=== PATIENT | male | born 1970 | race Caucasian/White ===

== ENCOUNTER → 2023-10-13 06:29 | Day surgery (SDC) | payer OTHER, SELFPAY | LOC: GI 06:29 | PROVIDERS: ATTENDING PHYSICIAN Internal Medicine Gastroenterology; FAMILY PHYSICIAN Family Medicine | DX: Z12.11 Encounter for screening for malignant neoplasm of colon (principal); R19.5 Other fecal abnormalities; K64.8 Other hemorrhoids; D12.4 Benign neoplasm of descending colon; R13.10 Dysphagia, unspecified; K31.7 Polyp of stomach and duodenum; K29.50 Unspecified chronic gastritis without bleeding | CPT/HCPCS: 45385; 43239; 88305; 88342 ==

== ENCOUNTER 2024-01-28 06:12 | Inpatient (IN) | payer OTHER, SELFPAY ==
[2024-01-28] VITALS (22 sets, daily range): BP systolic 106–153; BP diastolic 71–102; BMI 38.8
[2024-01-28] MEDS: LOW STRENGTH ASPIRIN 324 MG PO (04:54)
[2024-01-28] MEDS: BRILINTA 180 MG PO (04:54)
[2024-01-28] MEDS: NITROSTAT (SUBLINGUAL) 0.400000000000000022 MG SL ×3 (04:56→05:09)
[2024-01-28] MEDS: HEPARIN 5000 UNITS SC ×3 (04:57→16:06)
[2024-01-28 05:00] LABS: Glucose - Point of Care 130 mg/dl (70-99)
[2024-01-28 05:09] LABS: % Basophils 0.7 % (0-2); % Eosinophils 2.5 % (0-6); % Immature Granulocytes 0.6 % (0-0.5); % Lymphocytes 34.1 % (20.5-51.1); % Monocytes 10.8 % (1.7-9.3); % Neutrophils 51.3 % (42.2-75.2); Absolute Basophils 0.1 10^3/uL (0-0.2); Absolute Eosinophils 0.2 10^3/uL (0-0.7); Absolute Lymphocytes 2.5 10^3/uL (1.2-3.4); Absolute Monocytes 0.8 10^3/uL (0.1-0.6); Absolute Neutrophils 3.7 10^3/uL (1.4-6.5); Hematocrit 42.1 % (39.0-52.0); Hemoglobin 14.6 g/dL (13.0-18.0); Mean Corp Hgb Conc. 34.7 g/dL (33.0-37.0); Mean Corpuscular Hgb 28.9 pg (27.0-31.0); Mean Corpuscular Volume 83.2 fL (80.0-94.0); Mean Platelet Volume 8.9 fL (7.4-10.4); Nucleated Red Blood Cells % 0 % (-); Platelet Count 245 10^3/uL (130-400); Red Blood Cell Count 5.06 10^6/uL (4.70-6.10); Red Cell Dist. Width 13.3 % (11.5-14.5); White Blood Cell Count 7.2 10^3/uL (4.8-10.8)
[2024-01-28 05:19] LABS: APTT 24.5 Sec (23.4-35.0)
--- NOTE | 2024-01-28 05:19 | ED.GENMED ---
History of Present Illness
General
Chief Complaint: Chest Pain
Source: patient
Exam Limitations: clinical condition
Nursing documentation reviewed up to this point in time: agreed with
Travel History
Have you had any contact with someone who has COVID-19?: No
Do you have any symptoms of coronavirus? Fever > 100 degrees, chills, cough, shortness of breath, sore throat, loss of taste or smell, muscle aches, or headache?: No
History of Present Illness
History of Present Illness:
53-year-old male presents with substernal nonradiating chest pain that began around 4 AM and awakened him from sleep. States that he has not been feeling well for the last few days. Does have a history of myopericarditis that he had over 20 years
ago. Does have an extensive family history of cardiac disease. He has had a clean catheterization in his past. He is an occasional drinker and a very occasional cigar smoker. Does have high blood pressure and high cholesterol. He states that he
is a prediabetic. He reports not getting enough exercise as he would like.
Past History
Past History
ED Past Medical History: GERD, Hypercholesterolemia and Other (Viral pericarditis)
ED Past Surgical History: Orthopedic
Social History
Tobacco: Non-smoker
Alcohol: Occasional
Drug: None
Personal:
Living: with family
Review of Systems
Review of Systems
Allergies reviewed?: Yes
All Other Systems: ROS reviewed and negative except as documented in HPI and ROS
Constitutional: Reports no symptoms
EENT: Reports no symptoms
Respiratory: Reports no symptoms
Cardiac: Reports chest pain and diaphoresis
ABD/GI: Reports no symptoms
: Reports no symptoms
Musculoskeletal: Reports no symptoms
Skin: Reports no symptoms
Neurological: Reports no symptoms
Endocrine: Reports no symptoms
Hematologic/Lymphatic: Reports no symptoms
Psychiatric: Reports no symptoms
Phy Exam
General Physical Exam
General Presentation: moderate distress
General Skin: warm and diaphoretic
General Habitus: normal
General Mental: alert
General Hydration: appears well hydrated
ENT Exam
ENT Exam: EOMI, pharynx normal, neck supple and normocephalic
Eye Exam
Eye Exam: PERRL, cornea clear and conjunctiva normal
Cardiovascular Exam
Cardiovascular Exam: regular rate/rhythm, no edema, no murmur and normal peripheral pulses
Pulmonary Exam
Pulmonary Exam: lungs clear, no respiratory distress, no rales, no crackles, no rhonchi, no stridor, no wheezing and no cough
Gastrointestinal Exam
Gastrointestinal Exam: normal bowel sounds, non tender, soft, no organomegaly, no pulsatile mass and non distended
Neurological Exam
Neurological Exam: alert, oriented x3, no motor deficits and speech normal
Musculoskeletal Exam
Musculoskeletal Exam: full ROM and no edema
Skin Exam
Skin Exam: normal color, warm/dry, no rash and no petechia
Psychiatric Exam
Psychiatric Exam: normal mood/affect
Scores
Heart Score for Chest Pain Patients
STEMI patient?: Yes
Course
Orders/Labs/Results
Orders:
Orders
01/28/24 04:40
EKG [Electrocardiogram (*1)] Urgent
Reason for Study: Chest Pain
EKG- Treatment ONCE
01/28/24 04:52
Electrocardiogram (*1) Urgent
Reason for Study: Chest Pain
Cardiac Monitoring- Treatment ONCE
EKG- Treatment ONCE
IV Insert/Care/Rem.- Treatment PRN
Aspirin Chewable [Low Strength Aspirin] 324 mg PO NOW STA
O2 Therapy [RESP] Urgent
Titrate/Wean O2 to maintain O2 sat greater than (%): 90
Special Instructions: Maintain sats >/=90%
Pulse Ox/spot Check [RESP] Urgent
Quantity: 1
Special Instructions: ON ROOM AIR
01/28/24 04:53
Ticagrelor [Brilinta] 180 mg PO ONCE ONE
01/28/24 04:55
Nitroglycerin Sublingual [Nitrostat (Sublingual)] 0.4 mg SL NOW STA
01/28/24 04:57
Heparin 5,000 units SC NOW STA
01/28/24 04:58
Bedside Glucose- Treatment ONCE
01/28/24 04:59
C-Reactive Protein Urgent
Comment: ADD ON
Complete Blood Count/With Diff Urgent
Comprehensive Metabolic Panel Urgent
Erythrocyte Sed Rate Urgent
Comment: ADD ON
Troponin I Urgent
01/28/24 05:02
PTT Urgent
01/28/24 05:03
Nitroglycerin Sublingual [Nitrostat (Sublingual)] 0.4 mg SL NOW STA
01/28/24 05:08
Nitroglycerin Sublingual [Nitrostat (Sublingual)] 0.4 mg SL NOW STA
01/28/24 05:14
Fentanyl Citrate/Pf [Sublimaze] 100 mcg .ROUTE .STK-MED ONE
Heparin 10,000 units .ROUTE .STK-MED ONE
Midazolam HCl [Versed] 2 mg .ROUTE .STK-MED ONE
01/28/24 05:16
Heparin 1000 Units/500 ml [Heparin] 1,000 units in 500 ml .ROUTE .STK-MED
Verapamil Injectable [Isoptin/Verapamil Injection] 5 mg .ROUTE .STK-MED ONE
01/28/24 05:17
Lidocaine HCl/Pf [Xylocaine-Mpf 1% Vial] 50 mg .ROUTE .STK-MED ONE
Nitroglycerin [Tridil] 1,500 mcg .ROUTE .STK-MED ONE
01/28/24 05:36
Aspirin Chewable [Low Strength Aspirin] 324 mg .ROUTE .STK-MED ONE
Heparin 5,000 units .ROUTE .STK-MED ONE
Ticagrelor [Brilinta] 180 mg .ROUTE .STK-MED ONE
01/28/24 Breakfast
Cholesterol Lowering
Cholesterol Lowering: Sodium, 2 Gram
01/28/24 06:04
Code Status As Directed
Resuscitation Status: Full Code
Acetaminophen [Tylenol] 650 mg PO Q4HPRN PRN
01/28/24 06:05
Admit Patient As Directed
Co-Sign Provider:
Level of Care: Inpatient admission
Assign to:: IVU
Physician / Group: Lazara Kaur
Diagnosis: NSTEMI
Reason for Hospitalization: NSTEMI
Expected length of stay greater than two midnights?: Yes
ELOS- Estimated Length of Stay in days: 2
I certify the patient meets the requirements for IP care: Yes
Electrocardiogram (*1) Urgent
Reason for Study: Other
Other Reason for Exam: s/p intervention
CARDIAC REHAB CONSULT Routine
Co-Sign Provider:
Type of Cardiac Rehab Referral: Outpatient
Diagnosis: NSTEMI
Date of Diagnosis/Surgery: 01/28/24
Referring Provider: Noemi Monzon
Activity As Directed
Activity Level: Out of Bed- Ad Sravanthi
Activity Frequency: Ad Sravanthi
Activity As Directed
Activity Level: Out of Bed- Chair
Comment: bed/chair rest for 2 hours then out of bed ad sravanthi
Tourist Information Assistant Procedure As Directed
Cardiac Cath Procedure: cardiac catheterization
Tourist Information Assistant Procedure As Directed
Cardiac Cath Procedure: percutaneous coronary intervention
Intake/ Output As Directed
Frequency: Per unit guidelines
Notify MD As Directed
Notify physician if: immediately for chest pain or bleeding from access site(s)
Notify MD As Directed
Notify physician if: immediately for chest pain or bleeding from access site(s)
Radial Artery Hemostasis Method As Directed
Instructions:: 3 mL out at 1 hour post placement of band
3 mL out at 1 1/2 hours post placement of band
3 mL out at 2 hours post placement of band
Off at 2 1/2 hours post placement of band
If any oozing or hemotoma occurs:: re-inflate band and call provider
Radial Artery Hemostasis Method As Directed
Instructions:: 3 mL out at 2 hour posts placement of band
3 mL out at 2 1/2 hours post placement of band
3 mL out at 3 hours post placement of band
Off at 3 1/2 hours post placement of band
If any oozing or hemotoma occurs:: re-inflate band and call provider
Site Checks As Directed
Check access site for bleeding/hematoma: Yes
Comment: on arrival, Q15min x4, Q30min x2, Q1 hr x2, Q2 hr x2, Q4 hr or per
protocol
Site Checks As Directed
Check access site for bleeding/hematoma: Yes
Comment: on arrival, Q15min x4, Q30min x2, Q1 hr x2, Q2 hr x2, Q4 hr or per
protocol
Vascular Checks As Directed
Location: distal to access site - pulse check
Frequency: Other
Comment: on arrival, Q15min x4, Q30min x2, Q1 hr x2, Q2 hr x2, Q4 hr or per protocol
Vascular Checks As Directed
Location: distal to access site - pulse check
Frequency: Other
Comment: on arrival, Q15min x4, Q30min x2, Q1 hr x2, Q2 hr x2, Q4 hr or per protocol
Vital Signs As Directed
Frequency: Other
Additional Instructions:: on arrival, Q15min x4, Q30min x2, Q1 hr x2, Q2 hr x2, then Q4 hr or per unit
protocol
Vital Signs As Directed
Frequency: Other
Additional Instructions:: on arrival, Q15min x4, Q30min x2, Q1 hr x2, Q2 hr x2, then Q4 hr or per unit
protocol
01/28/24 06:08
DX Deep Vein Thrombosis Video Routine
01/28/24 06:11
Add On- LAB Routine
Tests Added?: ESR, CRP
01/28/24 08:00
Heparin 5,000 units SC Q8
01/28/24 12:35
Coxsackie A9 [S] Routine
01/28/24 17:43
Troponin I Q8H
Abnormal Lab Results
01/28/24 01/28/24
04:58 04:59
Absolute Monos (auto) 0.8 H 10^3/uL
(0.1-0.6)
Immature Gran % 0.6 H %
(0-0.5)
Monocytes % 10.8 H %
(1.7-9.3)
Glucose 130 H mg/dl
(70-99)
ALT 59 H U/L
(0-50)
Troponin I 0.616 H* ng/ml
C-Reactive Protein 18.50 H mg/L
(0.0-10.00)
POC Glucose 130 H mg/dl
(70-99)
01/28/24 04:59
01/28/24 04:59
Vital Signs
Initial and Last Documented VS:
Initial Vital Signs
BP
153/102
01/28/24 04:49
Last Documented Vital Signs
Temp Pulse Resp BP Pulse Ox
98.0 F 85 16 113/87 95
01/28/24 19:06 01/28/24 19:06 01/28/24 19:06 01/28/24 18:34 01/28/24 19:06
*Critical Care Note
Total Time (30-74mins, 75-104mins- exclusive of procedures): 35
comment:
Critical care statement: A total of 35 minutes of critical care time was provided for this patient. This time is separate from time utilized to perform the aforementioned documented procedures. Aggregate critical care time includes only time
during which I was engaged in work directly related to the patient's care, as described above, whether at the bedside or elsewhere in the Emergency Department.
ED Attending Note
-
Portions of this chart may have been created with voice recognition software.� Occasional wrong word or��sound alike� substitutions may have occurred due to the inherent limitations of voice recognition software.
Discharge Plan
Departure
Patient Disposition: [employer]
Date of Disposition: 01/28/24
Time of Disposition: :
Admit to: [facility]
Presentation/result/management discussed w/ accepting MD/DO: Dr. Monzon
Discharge Problem:
ST elevation (STEMI) myocardial infarction
Interventions
Interventions:
*Risk Screen - Suicide Last Done: 01/28/24 04:50
*General Assessment Last Done: 01/28/24 04:50
*Neglect/Abuse Screening Last Done: 01/28/24 04:50
ED- Fall Risk Assessment Last Done: 01/28/24 04:50
*ED COVID-19 Vaccine History Last Done: 01/28/24 04:50
*Nursing Disposition Last Done: 01/28/24 05:34
ED- Cardiac Assessment Last Done: 01/28/24 05:32
Discharge Date and Time
Discharge Date/Time: 01/28/24 05:35
[2024-01-28 05:22] LABS: ALT (SGPT) 59 U/L (0-50); AST (SGOT) 41 U/L (17-59); Albumin 4.4 g/dl (3.5-5.0); Alkaline Phosphatase 83 U/L (38-126); Blood Urea Nitrogen 16 mg/dl (9-20); Carbon Dioxide 27 mmol/L (22-30); Chloride 102 mmol/L (98-107); Estimated Creatinine Clearance > 125 ml/min; Glucose 130 mg/dl (70-99); Potassium 4.6 mmol/L (3.5-5.1); Sodium 140 mmol/L (135-145); Total Bilirubin 0.4 mg/dl (0.2-1.3); Total Protein 7.1 g/dl (6.3-8.2); eGFR > 60.00
[2024-01-28 06:00] LABS: Troponin I 0.616 ng/ml
--- NOTE | 2024-01-28 06:08 | HPS.HSE ---
Family Physician
-
Family Physician: Wilfredo Larson
Chief Complaint
-
CP
History of Present Illness
HPI: 53-year-old male PMH GERD, HTN, HLD, prediabetes, h/o myopericarditis; p/w substernal chest pain, generalized weakness and low grade fever that started on Friday. He was awoken by chest pain at 4 am on DOA.
He denies to other symptoms.
In the ED, his EKG noted diffuse ST elevation and STEMI alert was called. Pt was rushed to the laborer r[facility], but no significant coronary artery disease was noted.
Medical History
Past Medical History
Past Medical History: Reports Other
Additional Past Medical History:
GERD
HTN
HLD
prediabetes
h/o myopericarditis
In the ED, his EKG noted diffuse ST elevation and STEMI alert was called. Pt was rushed to the laborer rags, but no significant coronary artery disease was noted.
Past Surgical History: Reports Other
Additional Past Surgical History:
R wrist surgery
Social History
Tobacco: Other (cigar)
Alcohol: Occasional
Personal:
Living: With Family
Family History
Family History: Not pertinent
Allergies / Home Medications
Allergies reflects when Allergies were last updated in [facility].
Home Medications with original date entered in [facility]
Allergy/Medication List:
Allergies
Allergy/AdvReac Type Severity Reaction Status Date / Time
No Known Allergies Allergy Verified 01/28/24 04:49
Home Medications
omeprazole 40 mg capsule,delayed release 40 mg PO DAILY 01/28/24
pravastatin 10 mg tablet 10 mg PO HS 01/28/24
trazodone 50 mg tablet 50 mg PO HS PRN . 01/28/24
Review of Systems
-
Cardiac: Reports See HPI and Chest Pain
Physical Exam
Vital Signs
Vital Signs
Temp Pulse Resp BP Pulse Ox
36.7 C 93 21 145/89 99
01/28/24 04:50 01/28/24 05:00 01/28/24 05:00 01/28/24 05:00 01/28/24 05:00
Physical Exam
General: Well Developed, Well Nourished, No Apparent Distress, Comfortable and Conversant
HEENT: NormoCephalic, Moist mucous membranes and Atraumatic
Respiratory: Clear and Non Labored Respirations; No Accessory Resp Muscle Use
Cardiac: S1/S2 and Regular Rhythm; No Murmur or Rub
GI: Soft, Non Tender, Non Distended and Normal Bowel Sounds; No Organomegaly
Rectal: Deferred by Provider
Musculoskeletal: No Clubbing, No Cyanosis and No Edema
Skin: No Rash
Neuro: Awake and Nonfocal/grossly intact
Psych: Calm and Intact Judgment/Insight
Laboratory Results
-
01/28/24 04:59
01/28/24 04:59
Laboratory Results
APTT 24.5 Sec (23.4-35.0) 01/28/24 05:02
Total Bilirubin 0.4 mg/dl (0.2-1.3) 01/28/24 04:59
AST 41 U/L (17-59) 01/28/24 04:59
ALT 59 U/L (0-50) H 01/28/24 04:59
Alkaline Phosphatase 83 U/L (38-126) 01/28/24 04:59
Troponin I 0.616 ng/ml H* 01/28/24 04:59
Data Reviewed
-
Lab Data: Labs Reviewed by me
Impression/Plan
-
HPI: 53-year-old male PMH GERD, HTN, HLD, prediabetes, h/o myopericarditis; p/w substernal chest pain, generalized weakness and low grade fever that started on Friday. He was awoken by chest pain at 4 am on DOA.
He denies to other symptoms.
In the ED, his EKG noted diffuse ST elevation and STEMI alert was called. Pt was rushed to the laborer rags, but no significant coronary artery disease was noted.
A/P:
# CP with ST elevation due to pericarditis
ACS was ruled out from cardiac cath
check echo
trend trop until peak
Check ESR/CRP, coxsackie virus
Card CS
# GERD
# HTN
# HLD
# prediabetes
# Obersity
DVT ppx: Lovenox SQ
FC
--- NOTE | 2024-01-28 06:12 | ITS.CL.CATH ---
Dining Room Host/Hostess - Catheterization
Cardiac Catheterization
Procedure Report:
LEFT HEART CATHETERIZATION
Date of Procedure: January 28, 2024
Referring: [facility] emergency department
PROCEDURES:
1. Left heart catheterization, coronary angiogram.
2. Ultrasound-guided access
INDICATION: Patient is a 53-year-old morbidly obese gentleman with past medical history of prediabetes, hypertension, hyperlipidemia, prior episode of myopericarditis in his 20s or 30s for which he underwent a prior heart catheterization at [facility] who now presents with substernal chest pressure starting around 4 AM prior to presentation to the emergency department. He stated that since Friday he has been feeling unwell generally with chills and fevers without other specific
symptoms. He is pretty active at work and denies any recent exertional chest discomfort or shortness of breath. Chest discomfort radiating to right shoulder. ECG with subtle ST elevations diffusely, more prominent in 1 and aVL. Given ongoing
chest discomfort at 4 out of 10, heart catheterization team was brought in emergently for a left heart catheterization. After detailed informed consent with patient and his patient was emergently taken for a coronary angiogram to rule out
obstructive CAD. He received full dose aspirin, 180 mg of Brilinta, 4000 units of unfractionated heparin in the emergency department.
ACCESS: Right radial artery, 6 Sammarinese sheath, under ultrasound-guidance
HEMODYNAMICS : (mmHg)
AO (s/d) : 128/73
LV (s/d) : 122/11
LVEDP : 22
CORONARY FINDINGS
DOMINANCE: Right
LEFT MAIN: The left main artery is a large-caliber vessel which gives rise to the left anterior descending artery and the left circumflex artery. There is minimal luminal irregularities.
LEFT ANTERIOR DESCENDING: The left anterior descending artery is a large-caliber vessel which gives rise to 1 major diagonal branch as it courses through the anterior interventricular groove and wraps around the apex. There is minimal luminal
irregularities.
CIRCUMFLEX: The left circumflex artery is a medium caliber vessel which gives rise to 1 major obtuse marginal branch. There is minimal luminal irregularities.
RIGHT CORONARY ARTERY: The right coronary artery is a large-caliber, dominant vessel with moderate degree of tortuosity which gives rise to the right posterior descending artery and the right posterolateral system. There is minimal luminal
irregularities.
VENTRICULOGRAPHY: In a single plane SMITH projection, left ventricle appeared to have preserved systolic function, estimated LVEF of 55 to 60%.
SEDATION: 30 minutes of procedural sedation was utilized. An independent medical officer psychiatry was present to assist with and help manage the patient's level of consciousness and physiologic status.
RADIATION SUMMARY: Fluoro Time (min): 13.3, Dose (mGy): 1070.5, DAP (Gy.cm2) : 124.2
Closure Device: Vascular band over right radial artery, 9 cc of air
CONCLUSIONS
1. No obstructive coronary artery disease.
2. Elevated LVEDP at 22 mmHg.
3. In a single plane SMITH projection, left ventricle appeared to have preserved systolic function, estimated LVEF of 55 to 60%.
RECOMMENDATIONS
1. Wean radial band per protocol. We will treat as presumed recurrent myopericarditis.
2. Full echocardiogram to assess biventricular function and rule out any significant valvular abnormalities.
3. Trend troponins and EKGs. Will also check inflammatory markers
4. Defer to hospitalist team in regards to management of possible underlying infectious process.
5. Aggressive management of cardiovascular risk factors
Noemi Monzon MD, FACC, [facility]
[2024-01-28] MEDS: PROTONIX 40 MG PO (07:35)
--- NOTE | 2024-01-28 07:43 | PTCARENOTE ---
Received pt from material handler 1st shift RN; pt AAOX3 and resting comfortably at bedside; NSR on monitor and VSS; TR Band on Right wrist C/D/I 96% RA; Lungs clear; positive bowel sounds; pt voiding clear yellow urine; palpable radial and lower extremity pulses;
see nursing documentation for further details; family at bedside and updated.
[2024-01-28 08:13] LABS: Erythrocyte Sed Rate 15 mm/hour (0-20)
--- NOTE | 2024-01-28 08:48 | W.PN.HOSP.TC ---
Addendum entered and electronically signed by Zoran Germain MD 01/28/24 23:43:
Attending Addendum-
I saw and evaluated the patient. I reviewed the resident�s note and agree with findings and plan as documented in the resident�s note. No further CP or SOB. Full 12 point ROS reviewed and negative except as documented Exam: Vitals reviewed in chart
GEN-NAD Heart RRRl ungs clear abd osft LE no edema
A/P:
# Myopericarditis
- possibly viral
- due to repeat nature will benefit from autoimmune w/u as OP
- ACS was ruled out from cardiac cath 01/27
- check echo- no pericardial effusion
- trend trop until peak peaked @ 3
- coxsackie virus - neg
- flu neg
- D/W Cards- appreciate input, DC when trop peaks
- ID c/s appreciated
- Stable for DC
- dc on cochicine x 3 months and NSAID x 2 weeks
# GERD- cont omeprazole
# HTN- cont losartan
# HLD- cont pravastatin
# Obesity
DVT ppx: Lovenox SQ
Time spent coordinating care, review of plan of care with resident, review of records, med rec, consults, notes, labs, DC planning rads, d/w nursing and cards � 37 mins
Original Note:
Today's Communication/Plan
-
Continue colchicine.
Ibuprofen 600 Mg 3 times daily.
Follow-up with primary care within 1 week.
Follow-up with cardiology.
Assessment / Plan
Assessment / Plan
Assessment-
53-year-old male presents to the ER with sudden onset chest pain radiating into his bilateral armpits with shortness of breath and heart racing that woke him up from sleep at 4 AM in the morning today. Fever-100.6 x 2 days no fever today.
Impression-
Pericarditis
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
Morbid obesity
Hypertension
Viral myopericarditis x 20 years ago
GERD
Hyperlipidemia.
Plan-
Viral myopericarditis
EKG diffuse ST segment elevation resolved.
Troponin levels -0.414 in the AM upon admission, 12.30 -3.4.
Cardiac catheterization done in the a.m. in the setting of diffuse ST elevation and elevated troponin levels.
Catheterization results-
CONCLUSIONS
1. No obstructive coronary artery disease.
2. Elevated LVEDP at 22 mmHg.
3. In a single plane SMITH projection, left ventricle appeared to have preserved systolic function, estimated LVEF of 55 to 60%.
ID on board to determine viral respiratory panel necessity. Appreciate ID input.
Coxsackievirus antibodies, flu test pending.
Trend troponins and EKG.
Started colchicine, would start NSAIDs
CONCLUSIONS
Normal left ventricular size, wall thickness and systolic function. Left
ventricular ejection fraction is 50-55% by Lucio's method of discs. No gross
regional wall motion abnormalities.
Normal right ventricular size and function
No significant valvular pathology
No pericardial effusion
Hypertension-hyperlipidemia-
Continue home medications
Morbid obesity-
Lifestyle management advised.
DVT prophylaxis
Heparin
CODE STATUS
Full code.
Anticipated Discharge: Today
Subjective/Interval History
-
Date of Service: January 28, 2024
Patient reports no discomfort in his chest in the a.m. today.
Objective Data
-
Labs:
Laboratory Results
01/28/24 01/28/24
04:59 05:02
WBC 7.2
Hgb 14.6
Hct 42.1
Plt Count 245
APTT 24.5
Sodium 140
Potassium 4.6
Chloride 102
Carbon Dioxide 27
BUN 16
Creatinine 0.8
Glucose 130 H
Calcium 10.0
Total Bilirubin 0.4
AST 41
ALT 59 H
Alkaline Phosphatase 83
Vital Signs:
Vital Signs
Temp Pulse Resp BP Pulse Ox
98.2 F 92 18 116/82 95
01/28/24 07:00 01/28/24 08:33 01/28/24 07:15 01/28/24 08:33 01/28/24 08:33
Review of Systems
-
History Source: Patient
Constitutional: Reports No Symptoms
Respiratory: Reports No Symptoms
Cardiac: Reports No Symptoms
Abdomen/GI: Reports No Symptoms
Genitourinary: Reports No Symptoms
Musculoskeletal: Reports No Symptoms
Neuro: Reports No Symptoms
Hematologic / Lymphatic: Reports No Symptoms
Physical Exam
-
General: Well Developed, Well Nourished and Comfortable (On room air.)
HEENT: Normocephalic, Atraumatic and Moist Mucous Membranes
Respiratory: Clear to Auscultation and Other (No wheezes, rales, rhonchi)
Cardiac: Regular Rhythm, S1/S2 and Other (No murmurs, rubs, gallops. No pericardial friction rub.)
GI: Soft, Nontender and Nondistended
Genito-urinary: No Costovertebral Tender
Musculoskeletal: No Clubbing, No Cyanosis and No Edema
Skin: Warm
Neuro: Awake and AO x 3
--- NOTE | 2024-01-28 09:46 | PTCARENOTE ---
TR Band removed and dressing applied; NSR on monitor and VSS; ECHO at bedside.
--- NOTE | 2024-01-28 10:18 | CON.CAR ---
Addendum entered and electronically signed by Noemi Monzon MD 01/28/24 16:19:
Reviewed echocardiogram: Technically difficult study with low normal LV systolic function. No rWMA or significant valvular abnormalities. No pericardial effusion.
Elevated CRP.
Recommend trending trops to peak.
Colchicine 0.6mg BID
Start Losartan daily for low normal LV function
Outpt cardiology follow up.
Defer ID workup to primary team
Aggressive management of CV risk factors
Noemi Monzon MD, [facility], [facility]
Original Note:
Consultation
Consultation Request
Date/Time Consultation Requested: 01/28/24
Date/Time Consultation Performed: 01/28/24
Requesting Provider: Lazara Kaur
Performing Provider: Noemi Monzon MD
Reason for Consultation: Chest Pain
Medical History
-
Chief Complaint: Chest Pain
History of Present Illness:
Patient is a 53-year-old morbidly obese gentleman with past medical history of prediabetes, hypertension, family history of premature coronary artery disease, hyperlipidemia, prior episode of myopericarditis in his 20s or 30s for which he underwent
a prior heart catheterization at [facility] who now presents with substernal chest pressure starting around 4 AM prior to presentation to the emergency department. He stated that since Friday he has been feeling unwell generally with chills
and fevers without other specific symptoms. He is pretty active at work and denies any recent exertional chest discomfort or shortness of breath. Chest discomfort radiating to right shoulder. ECG with subtle ST elevations diffusely, more
prominent in 1 and aVL. Given ongoing chest discomfort at 4 out of 10, heart catheterization team was brought in emergently for a left heart catheterization. After detailed informed consent with patient and his patient was emergently taken
for a coronary angiogram to rule out obstructive CAD. He received full dose aspirin, 180 mg of Brilinta, 4000 units of unfractionated heparin in the emergency department.
Past Medical History
Past Medical History: HTN, Hypercholesterolemia and Other (morbid obesity, prediabetes, prior myopericarditis)
Past Surgical History: None
Social History
Tobacco: Non-Smoker
Alcohol: Occasional
Drug: None
Personal:
Living: With Family
Employment: Employed
Family History
Family History: Early CAD (dad- at age 55) and CAD
Allergies / Home Medications
Allergy/AdvReac Type Severity Reaction Status Date / Time
No Known Allergies Allergy Verified 01/28/24 04:49
�Medication �Instructions �Recorded �Confirmed �Type
omeprazole 40 mg capsule,delayed 40 mg PO Q48H 01/28/24 01/28/24 History
release
pravastatin 10 mg tablet 10 mg PO HS 01/28/24 01/28/24 History
trazodone 50 mg tablet 50 mg PO HS PRN . 01/28/24 01/28/24 History
Review of Systems
-
All other systems: Negative unless noted
Physical Exam
Vital Signs
Temp Pulse Resp BP Pulse Ox
98.2 F 82 18 121/74 97
01/28/24 07:00 01/28/24 09:45 01/28/24 07:15 01/28/24 09:00 01/28/24 09:30
Lab Results
01/28/24 04:59
01/28/24 04:59
Troponin I Cancelled 01/28/24 06:15
Physical Exam
General: Well Developed, Well Nourished and Other (morbidly obese)
HEENT: Moist Mucous Membranes
Respiratory: Clear and Non Labored Respirations; Negative Wheezes or Crackles
Cardiac: S1/S2 and Regular Rhythm; Negative Irregular Rhythm, Murmur, Peripheral Edema, JVD or HJR
Breast: Deferred by me
GI: Soft, Non Tender, Non Distended and Normal Bowel Sounds
Musculoskeletal: No Clubbing, No Cyanosis and No Edema
Skin: Warm and Dry
Neuro: AO x 3
Psych: Calm
Impression / Plan
-
53-year-old gentleman morbidly obese with past medical history of hypertension, hyperlipidemia, prediabetes, family history of premature coronary artery disease and prior episode of narrow pericarditis who presents with substernal chest discomfort
found to have no obstructive coronary artery disease by cath with presumed recurrent myopericarditis. Patient is thankfully chest pain-free this morning.
1. Trend EKGs and troponin levels.
2. Full echocardiogram is pending this morning.
3. Check inflammatory markers.
4. Colchicine 0.6 mg twice daily added.
5. Defer workup of recent fevers/chills for underlying infectious process to primary team
Noemi Monzon MD, FACC, [facility]
Data Reviewed
-
EKG: Tracing Personally Visualized and interpreted
Radiology: Report Reviewed by me
Medical Tests (Nuc Med, Echo etc): Report Reviewed by me
Labs: Labs Reviewed by me
Old Records: Reviewed
[2024-01-28] MEDS: COLCHICINE 0.599999999999999978 MG PO ×2 (10:21→19:16)
--- NOTE | 2024-01-28 12:11 | PTCARENOTE ---
Assessment unchanged; NSR on monitor and VSS; pt resting comfortably in bed with family at bedside.
--- NOTE | 2024-01-28 15:13 | CM ---
spoke to pt in room, he is pre vindep, lives with his in a 2 story home with 2 step sto enter. he denies any dc planning needs or dme's. plan is for dc t o home when medically stable.
--- NOTE | 2024-01-28 16:47 | CON.ID ---
Consultation
-
Date/Time Consultation Requested: January 28, 2024 1429
Date/Time Consultation Performed: January 28, 2024 1650
Requesting Provider: Dr. Gilda Chacon
Performing Provider: Dr. Gi Feliciano
Reason for Consultation: Myopericarditis, requesting respiratory panel
Chief Complaint / Past History
Chief Complaint
Chest tightness
History of Present Illness
53-year-old male with prediabetes, dyslipidemia, remote history of pericarditis in his 20s/30s who started feeling unwell around Friday night January 22. He felt subjective fever, felt hot and cold with chills. He had temperature 100.6 on January
18. He complains of myalgias, 'sensitive skin on his scalp'. He tested himself for COVID which was negative. This morning he woke up with chest tightness and shortness of breath. Positive nausea. He came to the hospital right away. Troponin
was positive. EKG showed ST elevation. He was taken to [facility] which showed NO obstructive coronary artery disease. Patient deemed to have myopericarditis. Echocardiogram showed NO pericardial effusion. He was started on colchicine.
Patient reports chest tightness has resolved. The sensitive skin on his scalp is better. No rhinorrhea. No sinus congestion. No sore throat. No cough. No abdominal pain or diarrhea. No urinary symptoms. No rash. He is up-to-date with his
flu vaccine. No recent travel. 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 His 10-year-old nephew did visit him on Friday. Nephew always has upper respiratory infections. Patient is not around sick
birds or animals. Regarding the prior pericarditis, he was told it was viral but no specific virus identified.
Past History
Additional Past Medical History:
Prediabetes
HLD
Myopericarditis in his 20s or 30s
Class III obesity BMI 39
Allergy History:
No Known Allergies Allergy (Verified 01/28/24 04:49)
Medications Reviewed: Yes
Current Antibiotics:
none
Social History
Tobacco: Non-Smoker
Alcohol: Occasional
Drug: None
Personal:
Living: With Family (and dog)
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
Family History
Family History: Not Pertinent
Review of Systems
Review of Systems
General: Negative Change in Appetite
HEENT: Negative Stiff Neck, Sinus Problems or Pharyngitis
Cardiovascular: Negative Edema
Respiratory: Negative Dyspnea or Cough
Gasteroenterology: Negative Vomiting
Genital / Urological: Negative Dysuria or Flank Pain
Endocrine: Negative Weakness
Musculoskeletal: Myalgias; Negative Arthralgias
Skin / Hair / Nails: Negative Rash
Neurological: Negative Dizziness
All systems: All other systems were reviewed and were negative
Vital Signs
Temp Pulse Resp BP Pulse Ox
98.0 F 83 18 127/82 95
01/28/24 16:12 01/28/24 16:12 01/28/24 16:12 01/28/24 16:05 01/28/24 16:12
Physical Exam
Physical Exam
Constitutional: No Acute Distress and Comfortable
Head: Other (No frontal or maxillary sinus tenderness)
Eyes: No Conjunctival Hemorrhage and Sclera Anicteric
Pharynx: Benign
Cardiovascular: Regular Rate and S1/S2
Pulmonary: Clear
Gastrointestinal: Soft, Non Tender, Non Distended and Normal Bowel Sounds
Genito-Urinary: Negative CVA Tenderness
Extremities: Negative Edema
Neurological: AO x 3
Lab / Diagnostic Study Results
01/28/24 04:59
01/28/24 04:59
Abs Immat Gran (auto) 0.0 10^3/uL (0-0.05) 01/28/24 04:59
Absolute Neuts (auto) 3.7 10^3/uL (1.4-6.5) 01/28/24 04:59
Absolute Lymphs (auto) 2.5 10^3/uL (1.2-3.4) 01/28/24 04:59
Absolute Monos (auto) 0.8 10^3/uL (0.1-0.6) H 01/28/24 04:59
Absolute Basos (auto) 0.1 10^3/uL (0-0.2) 01/28/24 04:59
Immature Gran % 0.6 % (0-0.5) H 01/28/24 04:59
Neutrophils % 51.3 % (42.2-75.2) 01/28/24 04:59
Lymphocytes % 34.1 % (20.5-51.1) 01/28/24 04:59
Monocytes % 10.8 % (1.7-9.3) H 01/28/24 04:59
Eosinophils % 2.5 % (0-6) 01/28/24 04:59
Basophils % 0.7 % (0-2) 01/28/24 04:59
ESR 15 mm/hour (0-20) 01/28/24 04:59
C-Reactive Protein 18.50 mg/L (0.0-10.00) H 01/28/24 04:59
Assessment / Plan
# Viral myopericarditis
- outpt COVID negative.
- Swab nose for influenza since it is treatable.
- Do not recommend further workup to identify virus (except for flu) as majority of cases no specific virus identified.
- Continue supportive care.
[2024-01-28] MEDS: COZAAR 25 MG PO (17:27)
--- NOTE | 2024-01-28 19:18 | W.DCSUMMARY ---
Addendum entered and electronically signed by Zoran Germain MD 01/28/24 23:44:
Attending Addendum:
Read reviewed and agree. See same day progress note for additional details.
Manny Germain MD
Original Note:
Documented by User: Gilda Chacon MD, Resident 01/28/24 19:30
Discharge Summary
Discharge Data
Date of Admission: 01/28/24
Date of Discharge: 01/28/24
-
Pending Results: Yes
Additional Pending Results:
Coxsackie B virus antibody screen
Hospital Course
Assessment-
53-year-old male presents to the ER with sudden onset chest pain radiating into his bilateral armpits with shortness of breath and heart racing that woke him up from sleep at 4 AM in the morning today. Fever-100.6 x 2 days no fever today.
Impression-
Pericarditis
Conditions [employer]-
Morbid obesity
Hypertension
Viral myopericarditis x 20 years ago
GERD
Hyperlipidemia.
Hospital course-
Upon admission patient was found to have a diffuse ST elevation on his EKG with elevated troponins and a code STEMI was called, patient was rushed to [facility] and cardiac catheterization was done which is negative for acute coronary artery disease.
On serial EKGs his ST segment elevation resolved and his EKG returned back to normal. Given patient's recent history of having fever and myalgias accompanied by headaches for 2 days, diagnosis of viral myopericarditis was made. As patient had
recurrent history of viral myopericarditis ID was consulted to rule out possible infectious etiologies, and ID ordered flu testing as it is the only treatable viral condition that can cause myocarditis. Flu test was negative. Coxsackie B virus
antibodies results pending.
CRP elevated to 18.
Troponins were elevated from 0.4-3 and started downtrending with most recent at 2.2.
Decision was made to discharge the patient home upon patient's request.
Investigations-
Cardiac catheterization results-
CONCLUSIONS
1. No obstructive coronary artery disease.
2. Elevated LVEDP at 22 mmHg.
3. In a single plane SMITH projection, left ventricle appeared to have preserved systolic function, estimated LVEF of 55 to 60%.
RECOMMENDATIONS
1. Wean radial band per protocol. We will treat as presumed recurrent myopericarditis.
2. Full echocardiogram to assess biventricular function and rule out any significant valvular abnormalities.
3. Trend troponins and EKGs. Will also check inflammatory markers
4. Defer to hospitalist team in regards to management of possible underlying infectious process.
5. Aggressive management of cardiovascular risk factors.
Echocardiogram-
CONCLUSIONS
Normal left ventricular size, wall thickness and systolic function. Left
ventricular ejection fraction is 50-55% by Lucio's method of discs. No gross
regional wall motion abnormalities.
Normal right ventricular size and function
No significant valvular pathology
No pericardial effusion.
Discharge Plan
-
Patient Disposition: Home (Routine Discharge)
Discharge Diagnosis/Procedures: Viral myopericarditis
Condition: Good
Diet: Low Fat and Low Cholesterol
Activity: No restrictions
Driving Restrictions: As prior to admission
Bathing Restrictions: None
Blood Work: Coxsackie B virus pending.
Activity Restrictions/Additional Instructions:
Echocardiogram in 3 months.
Referrals:
Noemi Monzon MD [Active] - in two to four weeks (Echo to be scheduled .)
Wilfredo Larson DO [Family Provider] - in less than 1 week
Prescriptions:
New
losartan 25 mg Tablet
25 mg PO DAILY Qty: 30 0RF
colchicine 0.6 mg Tablet
0.6 mg PO BID Qty: 60 0RF
Continued
trazodone 50 mg Tablet
50 mg PO HS PRN (Reason: .)
omeprazole 40 mg Capsule,Delayed Release(Dr/Ec)
40 mg PO Q48H
pravastatin 10 mg Tablet
10 mg PO HS
Discharge Orders:
Discharge Patient (As Directed); Ordered 01/28/24
Ordered By: Gilda Chacon
Care Plan Goals
Care Plan Goals:
Problem: Readiness for enhanced knowledge related to diagnosis and treatment plan
Goal: Understand your diagnosis and treatment plan needs, including medications if applicable.
Instructions: Know your diagnosis, underlying causes and treatment plan options, including medications if applicable. Consult with your health care team to learn about your diagnosis and treatment plan, including medications if applicable.
Discharge Date and Time
Discharge Date/Time: 01/28/24 19:51
Print Language: BRAZILIAN

Documented by User: Zoran Germain MD 01/28/24 23:36
Discharge Summary
Discharge Data
Date of Admission: 01/28/24
Date of Discharge: 01/28/24
Discharge Plan
-
Patient Disposition: Home (Routine Discharge)
Discharge Diagnosis/Procedures: Viral myopericarditis
Condition: Good
Diet: Low Fat and Low Cholesterol
Activity: No restrictions
Driving Restrictions: As prior to admission
Bathing Restrictions: None
Blood Work: Coxsackie B virus pending.
Activity Restrictions/Additional Instructions:
Echocardiogram in 3 months.
Referrals:
Noemi Monzon MD [Active] - in two to four weeks (Echo to be scheduled .)
Wilfredo Larson DO [Family Provider] - in less than 1 week
Prescriptions:
New
losartan 25 mg Tablet
25 mg PO DAILY Qty: 30 0RF
colchicine 0.6 mg Tablet
0.6 mg PO BID Qty: 60 0RF
Continued
trazodone 50 mg Tablet
50 mg PO HS PRN (Reason: .)
omeprazole 40 mg Capsule,Delayed Release(Dr/Ec)
40 mg PO Q48H
pravastatin 10 mg Tablet
10 mg PO HS
Discharge Orders:
Discharge Patient (As Directed); Ordered 01/28/24
Ordered By: Gilda Chacon
Care Plan Goals
Care Plan Goals:
Problem: Readiness for enhanced knowledge related to diagnosis and treatment plan
Goal: Understand your diagnosis and treatment plan needs, including medications if applicable.
Instructions: Know your diagnosis, underlying causes and treatment plan options, including medications if applicable. Consult with your health care team to learn about your diagnosis and treatment plan, including medications if applicable.
Discharge Date and Time
Discharge Date/Time: 01/28/24 19:51
Print Language: BRAZILIAN
[2024-01-31 20:34] LABS: Coxsackie A9 <1:8 (<1:8)
== END 2024-01-28 19:51 | disposition home or self-care (01) | DRG 287 ==
LOC: CVICU 06:12
PROVIDERS: Student in an Organized Health Care Education/Training Program; ADMITTING PHYSICIAN Internal Medicine; ATTENDING PHYSICIAN Family Medicine; CONSULT PHYSICIAN Internal Medicine Infectious Disease; EMERGENCY PHYSICIAN Student in an Organized Health Care Education/Training Program; FAMILY PHYSICIAN Family Medicine; OTHER PHYSICIAN Internal Medicine Interventional Cardiology
PROC: B2151ZZ Fluoroscopy of Left Heart using Low Osmolar Contrast (ICD-10-PCS; 2024-01-28)
PROC: B2111ZZ Fluoroscopy of Multiple Coronary Arteries using Low Osmolar Contrast (ICD-10-PCS; 2024-01-28)
PROC: 4A023N7 Measurement of Cardiac Sampling and Pressure, Left Heart, Percutaneous Approach (ICD-10-PCS; 2024-01-28)
DX: I30.1 Infective pericarditis (principal); K21.9 Gastro-esophageal reflux disease without esophagitis; I10 Essential (primary) hypertension; E66.01 Morbid (severe) obesity due to excess calories; Z68.39 Body mass index [BMI] 39.0-39.9, adult; E78.00 Pure hypercholesterolemia, unspecified
CPT/HCPCS: 80053; 82962; 84484; 85025; 85652; 85730; 86140; 86658; 87502; 93005; 93306; 93458; 96372; 99152; 99153; 99291; C1894; Q9950; Q9967

== ENCOUNTER → 2024-05-07 07:19 | Outpatient (REF) | payer OTHER, SELFPAY | LOC: HWRCS 07:19 | PROVIDERS: ATTENDING PHYSICIAN Internal Medicine Interventional Cardiology; FAMILY PHYSICIAN Family Medicine | DX: I31.9 Disease of pericardium, unspecified (principal) | CPT/HCPCS: 93306 ==

== ENCOUNTER 2024-09-19 11:25 | Emergency (ER) | payer OTHER, SELFPAY ==
[2024-09-19 11:29] VITALS: BP 164/85
[2024-09-19 12:31] VITALS: BMI 40.0
[2024-09-19 12:37] VITALS: BP 151/73
--- NOTE | 2024-09-19 12:45 | EDRN ---
Dr. Montelongo in room w/pt.
[2024-09-19] MEDS: PERCOCET 5/325 1 TABLET PO (12:54)
--- NOTE | 2024-09-19 13:03 | ED.GENMED ---
Addendum entered and electronically signed by Mahsa Montelongo DO 09/24/24 08:12:
Splint applied to right lower extremity - posterior short leg with stirrup
Original Note:
History of Present Illness
General
Chief Complaint: Fall
Time Seen by Provider: 09/19/24 12:07
History of Present Illness
History of Present Illness:
53-year-old male presenting to the ER for right ankle pain. Patient reports prior to arrival he fell off of a ladder, landed on his right ankle. Denies head injury or loss of consciousness. Denies additional acute injury. Denies numbness or
tingling to the ankle. Has been unable to bear weight. Reports pain particularly to the medial aspect of the ankle. Denies neck or back pain. Denies chest pain or difficulty breathing. Denies additional acute medical complaints
Past History
Past History
ED Past Medical History: GERD, Hypercholesterolemia and Other (Viral pericarditis)
ED Past Surgical History: Orthopedic
Social History
Tobacco: Non-smoker
Alcohol: Occasional
Drug: None
Personal:
Living: with family
Phy Exam
Physical Exam
Physical Exam:
General: Well-appearing, no clinical signs of dehydration, nontoxic and in no acute distress
HEENT: protecting airway
Neck: appears supple, no midline tenderness
CV: Normal heart rate, regular rhythm, no evidence of cyanosis
Resp: No accessory muscle use, no increased work of breathing
Abd: Soft and non-distended, no tenderness to palpation
Extremities: Swelling to the right ankle, most prominent at the medial malleoli. Range of motion grossly intact, limited secondary to pain. Distal sensation and pulses intact. No tenderness above the ankle joint
Neuro: alert, no focal neurologic deficit
: deferred
Rectal: deferred
Psych: Normal affect
Skin: Intact
Course
Orders/Labs/Results
Orders:
Orders
09/19/24 11:28
Ankle, Right 3 view CR [CR Ankle - Right Min 3 Views *] Urgent
Comment:
Reason For Exam: pain
09/19/24 12:47
Oxycodone/Acetaminophen [Percocet 5/325] 1 tablet PO NOW STA
Vital Signs
Initial and Last Documented VS:
Initial Vital Signs
Temp Pulse Resp BP Pulse Ox
98.4 F 77 18 164/85 98
09/19/24 11:29 09/19/24 11:29 09/19/24 11:29 09/19/24 11:29 09/19/24 11:29
Last Documented Vital Signs
Temp Pulse Resp BP Pulse Ox
98.4 F 70 18 151/73 100
09/19/24 11:29 09/19/24 12:37 09/19/24 12:37 09/19/24 12:37 09/19/24 12:37
MDM/Problems Addressed
MDM/Problems Addressed:
53-year-old male presenting for right ankle pain after a fall. Vital signs are significant for high blood pressure.
On exam, patient is in no acute distress, however does have obvious deformity to the right ankle. X-ray obtained prior to my assessment, intra-articular fracture to the distal fibula. Will place patient in a splint and provide pain medication and
no signs of injury on examination. Feel stable for discharge with outpatient orthopedic follow-up. Return precautions discussed and patient verbalized understanding
*Critical Care Note
Total Time (30-74mins, 75-104mins- exclusive of procedures): Not Applicable
ED Attending Note
-
Portions of this chart may have been created with voice recognition software.� Occasional wrong word or��sound alike� substitutions may have occurred due to the inherent limitations of voice recognition software.
Discharge Plan
Departure
Prescriptions:
No Action
trazodone 50 mg Tablet
50 mg PO HS PRN (Reason: .)
omeprazole 40 mg Capsule,Delayed Release(Dr/Ec)
40 mg PO Q48H
pravastatin 10 mg Tablet
10 mg PO HS
losartan 25 mg Tablet
25 mg PO DAILY Qty: 30 0RF
colchicine 0.6 mg Tablet
0.6 mg PO BID Qty: 60 0RF
Referrals:
Wilfredo Larson DO [Family Provider] -
Interventions
Interventions:
*Risk Screen - Suicide Last Done: 09/19/24 11:29
*General Assessment Last Done: 09/19/24 11:29
*Neglect/Abuse Screening Last Done: 09/19/24 12:32
ED- Fall Risk Assessment Last Done: 09/19/24 12:32
*ED COVID-19 Vaccine History Last Done: 09/19/24 11:29
ED-Musculoskeletal Assessment Last Done: 09/19/24 12:34
ED- Neurological Assessment Last Done: 09/19/24 12:34
ED-Skin Assessment Last Done: 09/19/24 12:34
Discharge Date and Time
Print Language: SURINAMESE
--- NOTE | 2024-09-19 13:09 | EDRN ---
Pt voided large amnt of urine at this time standing w/ support of on L leg, no wt baring R leg.
[2024-09-19 14:00] VITALS: BP 140/80
[2024-09-19] MEDS: TORADOL 30 MG IM (14:04)
== END 2024-09-19 14:15 | disposition home or self-care (01) ==
LOC: EMR 11:25
PROVIDERS: EMERGENCY PHYSICIAN Student in an Organized Health Care Education/Training Program; FAMILY PHYSICIAN Family Medicine
DX: S82.451A Displaced comminuted fracture of shaft of right fibula, initial encounter for closed fracture (principal); W11.XXXA Fall on and from ladder, initial encounter
CPT/HCPCS: 99284; 96372; 29515; 73610